=== PATIENT | male | born 1970 | race Caucasian/White ===

== ENCOUNTER 2018-07-02 17:08 | Observation (INO) | payer BC ==
[2018-07-02] MEDS ORDERED: KETOROLAC 30 MG/ML 1 ML VIAL IVP STA (18:03)
[2018-07-02] MEDS ORDERED: SODIUM CHLORIDE 0.9% 1,000 ML IV STA (18:03)
--- NOTE | 2018-07-02 18:08 | ED ---
General Adult HPI - General Chief complaint: Recheck/Abnormal Lab/Rx Stated complaint: Pain in buttocks Time Seen by Provider: 07/02/18 17:34 Source: patient, RN notes reviewed Mode of arrival: ambulatory Limitations: no limitations - History of Present Illness Initial comments: 47-year-old male presents to the emergency department for chief point of rectal pain 3 weeks. Patient states he was diagnosed with a fissure and started on a cream but states it is not helping. Patient describes the pain as a sharp pain that occurs intermittently throughout the day and last for 2-3 hours. He states the pain radiates to his pelvis. Patient denies significant pain with the bowel movement but states he does have some itching when having a bowel movement. He states sometimes he is worse after bowel movements but not consistently. He states nothing is alleviating the pain. He denies fevers or chills. He denies noting blood in the stool. He denies any abdominal pain. Patient has no other complaints at this time including shortness of breath, chest pain, abdominal pain, nausea or vomiting, headache, or visual changes. - Related Data Home Medications Medication Instructions Recorded Confirmed Atorvastatin [Lipitor] 10 mg PO DAILY 07/02/18 07/02/18 Ibuprofen [Motrin Ib] 400 mg PO Q6HR PRN 07/02/18 07/02/18 Multivitamins, Thera [Multivitamin 1 tab PO DAILY 07/02/18 07/02/18 (formulary)] [place]-3/Dha/Epa/Fish Oil [Fish Oil 1 cap PO DAILY 07/02/18 07/02/18 500 mg Softgel] Omeprazole 20 mg PO DAILY 07/02/18 07/02/18 Allergies Allergy/AdvReac Type Severity Reaction Status Date / Time No Known Allergies Allergy Verified 07/02/18 17:38 Review of Systems ROS Statement: Those systems with pertinent positive or pertinent negative responses have been documented in the HPI. ROS Other: All systems not noted in ROS Statement are negative. Past Medical History Past Medical History: GERD/Reflux, Hyperlipidemia Additional Past Medical History / Comment(s): fistula History of Any Multi-Drug Resistant Organisms: None Reported Past Surgical History: No Surgical Hx Reported Past Psychological History: No Psychological Hx Reported Smoking Status: Never smoker Past Alcohol Use History: Occasional Past Drug Use History: None Reported General Exam Limitations: no limitations General appearance: alert, in no apparent distress Head exam: Present: atraumatic, normocephalic, normal inspection Eye exam: Present: normal appearance, PERRL, EOMI. Absent: scleral icterus, conjunctival injection, periorbital swelling ENT exam: Present: normal exam, mucous membranes moist Neck exam: Present: normal inspection, full ROM. Absent: tenderness, meningismus, lymphadenopathy Respiratory exam: Present: normal lung sounds bilaterally. Absent: respiratory distress, wheezes, rales, rhonchi, stridor Cardiovascular Exam: Present: regular rate, normal rhythm, normal heart sounds. Absent: systolic murmur, diastolic murmur, rubs, gallop, clicks GI/Abdominal exam: Present: soft, normal bowel sounds. Absent: distended, tenderness, guarding, rebound, rigid Rectal exam: Present: normal rectal tone, tenderness (Significant tenderness noted on rectal exam). Absent: black stool, bloody stool, fecal impaction, hemorrhoids, mass, other (No fissure noted) Neurological exam: Present: alert, oriented X3, CN II-XII intact Psychiatric exam: Present: normal affect, normal mood Course Vital Signs 07/02/18 07/02/18 07/02/18 17:13 18:28 18:30 Temperature 97.3 F L Pulse Rate 58 L 43 L 48 L Respiratory 20 16 Rate Blood Pressure 134/84 124/80 O2 Sat by Pulse 99 98 99 Oximetry 07/02/18 19:00 Temperature Pulse Rate 47 L Respiratory 16 Rate Blood Pressure 124/83 O2 Sat by Pulse 97 Oximetry Medical Decision Making - Medical Decision Making 47-year-old male presents to the emergency department for a chief complaint of rectal pain 3 weeks. Patient was diagnosed with a fissure and started on cream but states it is not helping. He describes the pain as a sharp pain in the rectum that lasts for hours at a time and is intermittent throughout the day. He states it radiates into the pelvis. Patient denies significant pain when having a bowel movement. Admit sometimes it is worse after bowel movements but this is not consistent. He denies blood in the stool. He denies nausea or vomiting. CBC and CMP are unremarkable. Urine is negative. CT shows a small known hiatal hernia, otherwise negative scan. As patient's pain is significant at this time I do think he will benefit from seeing GI specialists in the hospital tomorrow. Patient agrees with this. He will be admitted and GI will be consulted. Patient's past medical history incorrectly states fistula, he states he was diagnosed with a fissure. - Lab Data Result diagrams: 07/02/18 18:36 07/02/18 18:36 Lab Results 07/02/18 07/02/18 07/02/18 Range/Units 18:36 18:36 19:40 WBC 6.1 (3.8-10.6) k/uL RBC 4.84 (4.30-5.90) m/uL Hgb 15.2 (13.0-17.5) gm/dL Hct 45.0 (39.0-53.0) % MCV 92.9 (80.0-100.0) fL MCH 31.4 (25.0-35.0) pg MCHC 33.8 (31.0-37.0) g/dL RDW 12.4 (11.5-15.5) % Plt Count 173 (150-450) k/uL Neutrophils % 55 % Lymphocytes % 30 % Monocytes % 7 % Eosinophils % 4 % Basophils % 1 % Neutrophils # 3.4 (1.3-7.7) k/uL Lymphocytes # 1.8 (1.0-4.8) k/uL Monocytes # 0.5 (0-1.0) k/uL Eosinophils # 0.2 (0-0.7) k/uL Basophils # 0.1 (0-0.2) k/uL Sodium 138 (137-145) mmol/L Potassium 4.2 (3.5-5.1) mmol/L Chloride 107 (98-107) mmol/L Carbon Dioxide 25 (22-30) mmol/L Anion Gap 6 mmol/L BUN 18 (9-20) mg/dL Creatinine 0.99 (0.66-1.25) mg/dL Est GFR (CKD-EPI)AfAm >90 (>60 ml/min/1.73 sqM) Est GFR (CKD-EPI)NonAf 89 (>60 ml/min/1.73 sqM) Glucose 85 (74-99) mg/dL Calcium 9.6 (8.4-10.2) mg/dL Total Bilirubin 0.5 (0.2-1.3) mg/dL AST 33 (17-59) U/L ALT 48 (21-72) U/L Alkaline Phosphatase 57 (38-126) U/L Total Protein 7.1 (6.3-8.2) g/dL Albumin 4.1 (3.5-5.0) g/dL Amylase 63 (30-110) U/L Lipase 71 (23-300) U/L Urine Color Yellow Urine Appearance Clear (Clear) Urine pH 6.0 (5.0-8.0) Urine Protein Negative (Negative) Urine Glucose (UA) Negative (Negative) Urine Ketones Negative (Negative) Urine Blood Negative (Negative) Urine Nitrite Negative (Negative) Urine Bilirubin Negative (Negative) Urine Urobilinogen <2.0 (<2.0) mg/dL Ur Leukocyte Esterase Negative (Negative) Disposition Clinical Impression: Rectal pain Disposition: ADMITTED IP TO THIS [facility] Condition: Good Referrals: None,Stated [Primary Care Provider] - 1-2 days Time of Disposition: 19:56
[2018-07-02 18:39] LABS: Basophils # (A) 0.1 k/uL (0-0.2); Basophils % (A) 1 %; Eosinophils # (A) 0.2 k/uL (0-0.7); Eosinophils % (A) 4 %; HGB 15.2 gm/dL (13.0-17.5); Lymphocytes # (A) 1.8 k/uL (1.0-4.8); Lymphocytes % (A) 30 %; MCH 31.4 pg (25.0-35.0); MCHC 33.8 g/dL (31.0-37.0); MCV 92.9 fL (80.0-100.0); Mean Platelet Volume 8.1; Monocytes # (A) 0.5 k/uL (0-1.0); Monocytes % (A) 7 %; Neutrophils # (A) 3.4 k/uL (1.3-7.7); Neutrophils % (A) 55 %; Platelet Count 173 k/uL (150-450); RBC 4.84 m/uL (4.30-5.90); RDW 12.4 % (11.5-15.5); WBC 6.1 k/uL (3.8-10.6)
[2018-07-02 18:58] LABS: ALT 48 U/L (21-72); AST 33 U/L (17-59); Albumin 4.1 g/dL (3.5-5.0); Alkaline Phosphatase 57 U/L (38-126); Amylase 63 U/L (30-110); Anion Gap 6 mmol/L; Blood Urea Nitrogen 18 mg/dL (9-20); Calcium 9.6 mg/dL (8.4-10.2); Carbon Dioxide 25 mmol/L (22-30); Chloride 107 mmol/L (98-107); Glucose 85 mg/dL (74-99); Lipase 71 U/L (23-300); Potassium 4.2 mmol/L (3.5-5.1); Sodium 138 mmol/L (137-145); Total Bilirubin 0.5 mg/dL (0.2-1.3); Total Protein 7.1 g/dL (6.3-8.2)
--- NOTE | 2018-07-02 19:05 | CT ---
EXAMINATION TYPE: CT abdomen pelvis w con DATE OF EXAM: 07/02/2018 COMPARISON: None HISTORY: Rectal pain. CT DLP: 943.1 mGycm Automated exposure control for dose reduction was used. TECHNIQUE: Helical acquisition of images was performed from the lung bases through the pelvis. CONTRAST: Performed without Oral Contrast and with IV Contrast, patient injected with 100ml mL of Isovue 300. FINDINGS: Multiple axial sections were obtained from the diaphragm to the floor the pelvis with intravenous con trast. There is subsegmental atelectasis at the lung bases. There are small hiatal hernia. Heart size is nor mal. There is no pericardial effusion. There is no pleural effusion. Liver shows no focal defect. Gallbladder appears normal. Spleen and pancreas appear normal. There is no adrenal mass. Kidneys show satisfactory contrast opacification. There is no hydronephrosi s. There is no retroperitoneal adenopathy. Bladder distends smoothly. There is no free fluid in the p elaine. There is no inguinal hernia. Ureters are not dilated. There is no mesenteric edema or adenopathy. Appendix is not seen. There is no sign of appendicitis. There is no evidence of a pelvic mass. Prostate measures 4.4 cm. There is no evidence of a rectal mas s. Lumbar spine is intact. I see no bony destructive process. Bony pelvis is intact. IMPRESSION: SMALL HIATAL HERNIA. NEGATIVE CT SCAN OF THE ABDOMEN AND PELVIS. I DO NOT SEE A CAUSE FOR RECTAL PAIN .
[2018-07-02 19:47] LABS: Appearance,Urine Clear (Clear); Bilirubin,Urine Negative (Negative); Blood,Urine Negative (Negative); Color,Urine Yellow; Glucose,Urine (UA) Negative (Negative); Ketones,Urine Negative (Negative); Leukocyte Esterase,Urine Negative (Negative); Nitrite,Urine Negative (Negative); Protein,Urine Negative (Negative); Urobilinogen,Urine <2.0 mg/dL (<2.0)
[2018-07-02 19:57] LABS: Specific Gravity,Urine >1.050 (1.001-1.035)
[2018-07-02] MEDS ORDERED: NALOXONE 0.4 MG/ML 1 ML VIAL IV PRN (19:57)
[2018-07-02] MEDS ORDERED: KETOROLAC 30 MG/ML 1 ML VIAL IVP PRN (19:57)
[2018-07-02] MEDS: SODIUM CHLORIDE 0.9% 1,000 ML IV SCH (20:40)
[2018-07-03] MEDS: SODIUM CHLORIDE 0.9% 1,000 ML IV SCH ×2 (06:25→14:55)
[2018-07-03] MEDS ORDERED: LORazepam 2 MG/ML INJ IV PRN ×3 (09:54)
[2018-07-03] MEDS ORDERED: THIAMINE 100 MG/ML 2 ML VIAL IM STA (09:54)
[2018-07-03 09:58] LABS: Glucose,Whole Blood 86 mg/dL (75-99)
--- NOTE | 2018-07-03 10:36 | P.CONS ---
History of Present Illness - Reason for Consult Consult date: 07/03/18 rectal pain Requesting physician: Kev Solomon - Chief Complaint rectal pain - History of Present Illness 47-year-old gentleman with a past medical history of GERD admitted with three- week history of rectal pain without fever chills weight loss, hematemesis, hematochezia, melena, or abdominal pain. Patient was evaluated by a GI specialist [facility] in [facility] 3 weeks ago and was told he had a rectal fissure. He was prescribed suppositories which she did not take secondary to increased pain. History of colonoscopy EGD about 3 years ago performed through [facility] to his memory unremarkable with the exception of a few polyps removed. Drinks beer 3-4 days a week for several years No personal or familial history of colorectal cancers. CT abdomen reported small hiatal hernia otherwise negative. No cause for rectal pain. White count 6.1. Hemoglobin 15.2. BUN 18. Creatinine 0.9. No history of rectal pain. No trauma to rectal region. Denies rectal foreign body. Review of Systems Constitutional: Denies fever, chills, sweats, weight gain, or loss. HEENT: Negative for migraines, blurred vision or loss, earaches, drainage, tinnitus, oral mucosal lesions, dysphagia, or odynophagia. Cardiac: Negative for chest pain, arrhythmias, or palpitation. Respiratory: Negative for shortness of breath, hemoptysis, cough, or sputum production. Gastrointestinal: See HPI for pertinent findings. Genitourinary: Negative for hematuria, urgency, frequency, polyuria, dysuria, or penile discharge. Musculoskeletal: Negative for muscle aches, swelling, arthritis, and arthralgias. Neurologic: Negative for stroke or TIA. Endocrine: Negative for thyroid problems. Skin: Negative for rash or itching. Psychiatric: Negative history for depression and anxiety Past Medical History Past Medical History: GERD/Reflux, Hyperlipidemia Additional Past Medical History / Comment(s): fistula History of Any Multi-Drug Resistant Organisms: None Reported Past Surgical History: No Surgical Hx Reported Past Anesthesia/Blood Transfusion Reactions: No Reported Reaction Past Psychological History: No Psychological Hx Reported Smoking Status: Never smoker Past Alcohol Use History: Occasional Past Drug Use History: None Reported - Past Family History Mother History Unknown: Yes Medications and Allergies Home Medications Medication Instructions Recorded Confirmed Type Atorvastatin [Lipitor] 10 mg PO DAILY 07/02/18 07/02/18 History Ibuprofen [Motrin Ib] 400 mg PO Q6HR PRN 07/02/18 07/02/18 History Multivitamins, Thera [Multivitamin 1 tab PO DAILY 07/02/18 07/02/18 History (formulary)] [place]-3/Dha/Epa/Fish Oil [Fish Oil 1 cap PO DAILY 07/02/18 07/02/18 History 500 mg Softgel] Omeprazole 20 mg PO DAILY 07/02/18 07/02/18 History Allergies Allergy/AdvReac Type Severity Reaction Status Date / Time No Known Allergies Allergy Verified 07/02/18 17:38 Physical Exam Vitals: Vital Signs Temp Pulse Pulse Resp BP BP Pulse Ox 07/03/18 07:00 98.0 F 63 16 127/75 95 07/02/18 22:00 18 07/02/18 21:30 97.6 F 62 18 142/82 96 07/02/18 20:42 63 20 128/91 97 07/02/18 20:00 61 20 100/45 99 07/02/18 19:00 47 L 16 124/83 97 07/02/18 18:30 48 L 16 124/80 99 07/02/18 18:28 43 L 98 07/02/18 17:13 97.3 F L 58 L 20 134/84 99 Intake and Output 07/02/18 07/03/18 07/03/18 22:59 06:59 14:59 Intake Total 200 0 Balance 200 0 Intake: Oral 200 0 Other: # Voids 0 Weight 88.224 kg General appearance: The patient is alert, oriented, diaphoretic. HET: Head is normocephalic and atraumatic. Pupils are equal and reactive. Oropharynx is clear without lesions. Neck: Supple without lymphadenopathy. Trachea midline. Heart: S1 S2. Regular rate and rhythm. Lungs: No crackles or wheezes are heard. Abdomen: Soft, nontender, nondistended with bowel sounds. No peritoneal signs. No palpable organomegaly or masses. Extremities: Normal skin color and turgor. No cyanosis, rash, ulceration, clubbing, or edema. Radial and pedal pulses are 2/4 bilaterally. Neurological: No focal deficits. Strength and sensation are grossly intact. Results CBC & Chem 7: 07/02/18 18:36 07/02/18 18:36 Labs: Abnormal Lab Results - Last 24 Hours (Table) 07/02/18 Range/Units 19:40 Ur Specific [place] >1.050 H (1.001-1.035) CT scan - abdomen: report reviewed (Dr. Chaudhary) Assessment and Plan (1) Rectal pain Narrative/Plan: 47-year-old gentleman admitted with a 3 week history of rectal pain without bleeding weight loss or abdominal pain. Recent outpatient evaluation 3 weeks ago told anal fissure, rectal suppositories advised but not taken secondary to increased pain. CT imaging could not identify cause of rectal pain. Current Visit: Yes Status: Acute Code(s): K62.89 - OTHER SPECIFIED DISEASES OF ANUS AND RECTUM SNOMED Code(s): 32977575 (2) ETOH abuse Narrative/Plan: Possible withdrawl drinks 3-4 beers daily 3-4 days week presently with diaphoresis. Current Visit: Yes Status: Acute Code(s): F10.10 - ALCOHOL ABUSE, UNCOMPLICATED SNOMED Code(s): 45055126 Plan: 1. Clear liquids. CIWA. Patient is diaphoretic this morning possible early EtOH withdrawal we'll hold off on colonoscopy for now but is recommended for evaluation of rectal pain. We'll continue to follow closely with you. The budder has discussed the risks, benefits and alternative therapies for the above-mentioned procedure and for both sedation/analgesia as well as necessary blood product administration, if indicated, as they pertain to this patient. The patient has indicated understanding and acceptance of the risks and procedures discussed. Thank you for this kind referral and the opportunity to participate in the care of your patient. This consultation was discussed with Dr. Chaudhary. The impression and plan of care have been directed as dictated.
[2018-07-03] MEDS ORDERED: BISACODYL 5 MG TABLET.DR PO ONE (12:00)
[2018-07-03 12:30] LABS: Basophils # (A) 0.1 k/uL (0-0.2); Basophils % (A) 1 %; Eosinophils # (A) 0.3 k/uL (0-0.7); Eosinophils % (A) 4 %; HCT 44.1 % (39.0-53.0); HGB 14.5 gm/dL (13.0-17.5); Lymphocytes # (A) 1.8 k/uL (1.0-4.8); Lymphocytes % (A) 31 %; MCH 30.5 pg (25.0-35.0); MCV 92.3 fL (80.0-100.0); Mean Platelet Volume 7.7; Monocytes # (A) 0.4 k/uL (0-1.0); Monocytes % (A) 7 %; Neutrophils # (A) 3.2 k/uL (1.3-7.7); Neutrophils % (A) 55 %; Platelet Count 173 k/uL (150-450); RBC 4.77 m/uL (4.30-5.90); RDW 12.3 % (11.5-15.5); WBC 5.9 k/uL (3.8-10.6)
[2018-07-03 12:47] LABS: Anion Gap 5 mmol/L; Blood Urea Nitrogen 12 mg/dL (9-20); Calcium 9.1 mg/dL (8.4-10.2); Carbon Dioxide 25 mmol/L (22-30); Chloride 111 mmol/L (98-107); Glucose 90 mg/dL (74-99); Potassium 4.2 mmol/L (3.5-5.1); Sodium 141 mmol/L (137-145)
[2018-07-03] MEDS: PANTOPRAZOLE 40 MG TABLET PO SCH (14:54)
[2018-07-03] MEDS ORDERED: PEG 3350-NA SULF,BICARB,CL/KCL 4,000 ML BOTTLE PO ONE ×2 (15:00→18:24)
--- NOTE | 2018-07-03 15:04 | P.HPIM ---
History of Present Illness 47-year-old gentleman with a past medical history of GERD admitted with three- week history of rectal pain without fever chills weight loss, hematemesis, hematochezia, melena, or abdominal pain. Patient was evaluated by a GI specialist [facility] in [facility] 3 weeks ago and was told he had a rectal fissure. He was prescribed suppositories which she did not take secondary to increased pain. History of colonoscopy EGD about 3 years ago performed through [facility] to his memory unremarkable with the exception of a few polyps removed. Rectal exam in ER did not show any voids Drinks beer 3-4 days a week for several years he drinks about 2-6 beers a day 3- 4 times a week Review of Systems REVIEW OF SYSTEMS: CONSTITUTIONAL: No fever, no malaise, no fatigue. HEENT: No recent visual problems or hearing problems. Denied any sore throat. CARDIOVASCULAR: No chest pain, orthopnea, PND, no palpitations, no syncope. PULMONARY: No shortness of breath, no cough, no hemoptysis. GASTROINTESTINAL: No diarrhea, no nausea, no vomiting, no abdominal pain. Normoactive bowel sounds. NEUROLOGICAL: No headaches, no weakness, no numbness. HEMATOLOGICAL: Denies any bleeding or petechiae. GENITOURINARY: Denies any burning micturition, frequency, or urgency. MUSCULOSKELETAL/RHEUMATOLOGICAL: Denies any joint pain, swelling, or any muscle pain. ENDOCRINE: Denies any polyuria or polydipsia. The rest of the 14-point review of systems is negative. Past Medical History Past Medical History: GERD/Reflux, Hyperlipidemia Additional Past Medical History / Comment(s): fistula History of Any Multi-Drug Resistant Organisms: None Reported Past Surgical History: No Surgical Hx Reported Past Anesthesia/Blood Transfusion Reactions: No Reported Reaction Past Psychological History: No Psychological Hx Reported Smoking Status: Never smoker Past Alcohol Use History: Occasional Past Drug Use History: None Reported - Past Family History Mother History Unknown: Yes Medications and Allergies Home Medications Medication Instructions Recorded Confirmed Type Atorvastatin [Lipitor] 10 mg PO DAILY 07/02/18 07/02/18 History Ibuprofen [Motrin Ib] 400 mg PO Q6HR PRN 07/02/18 07/02/18 History Multivitamins, Thera [Multivitamin 1 tab PO DAILY 07/02/18 07/02/18 History (formulary)] [place]-3/Dha/Epa/Fish Oil [Fish Oil 1 cap PO DAILY 07/02/18 07/02/18 History 500 mg Softgel] Omeprazole 20 mg PO DAILY 07/02/18 07/02/18 History Allergies Allergy/AdvReac Type Severity Reaction Status Date / Time No Known Allergies Allergy Verified 07/02/18 17:38 Physical Exam Vitals: Vital Signs Temp Pulse Pulse Resp BP BP Pulse Ox 07/03/18 07:00 98.0 F 63 16 127/75 95 07/02/18 22:00 18 07/02/18 21:30 97.6 F 62 18 142/82 96 07/02/18 20:42 63 20 128/91 97 07/02/18 20:00 61 20 100/45 99 07/02/18 19:00 47 L 16 124/83 97 07/02/18 18:30 48 L 16 124/80 99 07/02/18 18:28 43 L 98 07/02/18 17:13 97.3 F L 58 L 20 134/84 99 Intake and Output 07/03/18 07/03/18 07/03/18 06:59 14:59 22:59 Intake Total 0 Balance 0 Intake: Oral 0 PHYSICAL EXAMINATION: GENERAL: The patient is alert and oriented x3, not in any acute distress. Well developed, well nourished. HEENT: Pupils are round and equally reacting to light. EOMI. No scleral icterus. No conjunctival pallor. Normocephalic, atraumatic. No pharyngeal erythema. No thyromegaly. CARDIOVASCULAR: S1 and S2 present. No murmurs, rubs, or gallops. PULMONARY: Chest is clear to auscultation, no wheezing or crackles. ABDOMEN: Soft, nontender, nondistended, normoactive bowel sounds. No palpable organomegaly. MUSCULOSKELETAL: No joint swelling or deformity. EXTREMITIES: No cyanosis, clubbing, or pedal edema. NEUROLOGICAL: Gross neurological examination did not reveal any focal deficits. SKIN: No rashes. Results CBC & Chem 7: 07/03/18 12:18 07/03/18 12:18 Labs: Abnormal Lab Results - Last 24 Hours (Table) 07/02/18 07/03/18 Range/Units 19:40 12:18 Chloride 111 H (98-107) mmol/L Ur Specific [place] >1.050 H (1.001-1.035) Thrombosis Risk Factor Assmnt - Choose All That Apply Any of the Below Risk Factors Present?: Yes Each Factor Represents 1 point: Age 41-60 years, Obesity (BMI >25) Other congenital or acquired thrombophilia - If yes, enter type in comment: No Thrombosis Risk Factor Assessment Total Risk Factor Score: 2 Thrombosis Risk Factor Assessment Level: Low Risk Assessment and Plan Plan: -Rectal pain: Anal fissures is in differential patient will undergo colonoscopy tomorrow -Gastroesophageal reflux disease patient will be resumed on Prevacid -Hyperlipidemia -Alcohol abuse: Counseling was provided I do not believe patient has all call withdraws at this time and I do not expect him to have alcohol withdrawals either
[2018-07-03] MEDS: THIAMINE 100 MG TAB PO SCH (16:17)
[2018-07-03] MEDS: MORPHINE SULFATE 4 MG/ML SYRINGE IV PRN (21:36)
[2018-07-04] MEDS: MORPHINE SULFATE 4 MG/ML SYRINGE IV PRN ×3 (01:23→12:18)
[2018-07-04] MEDS: SODIUM CHLORIDE 0.9% 1,000 ML IV SCH ×2 (03:34→12:23)
[2018-07-04 06:27] VITALS: BP 154/81; PULSE 67; RESP 18; TEMP 98
[2018-07-04] MEDS: PANTOPRAZOLE 40 MG TABLET PO SCH (07:35)
[2018-07-04] MEDS ORDERED: PROPOFOL 10 MG/ML 20 ML VIAL IV ONE (08:27)
[2018-07-04] MEDS ORDERED: IV FLUID CONTINUATION 250 ML IV ONE (08:28)
[2018-07-04] MEDS ORDERED: LACTATED RINGERS 1,000 ML IV ONE (08:42)
--- NOTE | 2018-07-04 08:44 | P.PCN ---
Date of Procedure: 07/04/18 Procedure(s) Performed: BRIEF HISTORY: Patient is a 47-year-old pleasant, white male, admitted to the hospital with severe rectal pain for the last 3 weeks' duration. He was treated with topical steroids as well as nitroglycerin cream for anal fissure with no help. Because of the ongoing persistent symptoms he scheduled for colonoscopy to evaluate further. PROCEDURE PERFORMED: Colonoscopy. PREOPERATIVE DIAGNOSIS: Severe rectal pain of 3 weeks' duration. IV sedation per Anesthesia. PROCEDURE: After informed consent was obtained, the patient, was brought into the endoscopy unit. IV sedation was administered by Anesthesia under continuous monitoring. Digital rectal examination was normal. Perianal area appeared normal. Digital rectal examination did not reveal any anal fissure. However there was some spasm of the sphincter noted. Initially the Olympus CF-160 flexible video colonoscope was then inserted in the rectum, gradually advanced into the cecum without any difficulty. Careful examination was performed as the scope was gradually being withdrawn. Ileocecal valve and the appendiceal orifice were visualized and appeared normal. Prep was excellent. Mucosa of the cecum, ascending colon, transverse colon, descending colon, sigmoid colon, and rectum appeared normal. Retroflexion was performed in the rectum and small internal hemorrhoids were seen. The patient tolerated the procedure well. IMPRESSION: Normal perianal area Small internal hemorrhoids Scattered sigmoid diverticulosis No evidence of external hemorrhoids, anal fissure or other perianal pathology RECOMMENDATIONS: Findings of this examination were discussed with the patient. Will give him a trial of topical steroid suppository and advised to be a high- fiber diet and take fiber supplements on a regular basis, avoid straining and constipation.
[2018-07-04] MEDS ORDERED: HYDROCORTISONE SUPPOSITORY 25 MG SUPP RECTAL STA (08:47)
[2018-07-04] MEDS: THIAMINE 100 MG TAB PO SCH (12:18)
--- NOTE | 2018-07-04 14:26 | P.DS ---
Providers Date of admission: 07/02/18 19:57 Expected date of discharge: 07/04/18 Attending physician: Kev Solomon Consults: 07/02/18 19:57 Consult Physician Stat Consulting Provider: Ludy Chaudhary Consult Reason/Comments: rectal pain x 3 weeks Do you want consulting provider notified?: Yes Primary care physician: Stated None Hospital Course: Final Diagnoses: -Rectal pain: Status post colonoscopy reporting small internal hemorrhoids, scattered sigmoid diverticulosis -Gastroesophageal reflux disease -Hyperlipidemia -Alcohol abuse counseled Hospital course: This is a 47-year-old gentleman with a past medical history of GERD admitted with three-week history of rectal pain without fever chills weight loss, hematemesis, hematochezia, melena, or abdominal pain. Patient was evaluated by a GI specialist [facility] in [facility] 3 weeks ago and was told he had a rectal fissure. He was prescribed suppositories which she did not take secondary to increased pain. History of colonoscopy EGD about 3 years ago performed through [facility] to his memory unremarkable with the exception of a few polyps removed. Rectal exam in ER did not show any voids Drinks beer 3-4 days a week for several years he drinks about 2-6 beers a day 3- 4 times a week Evaluated by GI, underwent colonoscopy reporting small internal hemorrhoids, scattered sigmoid diverticulosis. High fiber diet, Anusol HC suppositories recommended. Cleared by GI for discharge. Patient is being discharged home in a stable condition with guarded prognosis. EXAMINATION: GENERAL: alert and oriented x3, not in any acute distress. CARDIOVASCULAR: S1 and S2 present. No murmurs, rubs, or gallops. PULMONARY: Chest is clear to auscultation, no wheezing or crackles. ABDOMEN: Soft, nontender, nondistended, normoactive bowel sounds. NEUROLOGICAL: Gross neurological examination did not reveal any focal deficits. The impression and plan of care has been dictated as directed. : I performed a history and examination of this patient, discussed the same with the dictator. I agree with the dictator's note ,documented as a scribe. Any additional findings or plans will be noted. Time taken: 35 minutes Patient Condition at Discharge: Stable Plan - Discharge Summary New Discharge Prescriptions: New Hydrocortisone Suppository [Anusol-Hc] 25 mg RECTAL BID #28 supp Continue Multivitamins, Thera [Multivitamin (formulary)] 1 tab PO DAILY Atorvastatin [Lipitor] 10 mg PO DAILY Omeprazole 20 mg PO DAILY [place]-3/Dha/Epa/Fish Oil [Fish Oil 500 mg Softgel] 1 cap PO DAILY Ibuprofen [Motrin Ib] 400 mg PO Q6HR PRN PRN Reason: Pain Discharge Medication List Atorvastatin [Lipitor] 10 mg PO DAILY 07/02/18 [History] Ibuprofen [Motrin Ib] 400 mg PO Q6HR PRN 07/02/18 [History] Multivitamins, Thera [Multivitamin (formulary)] 1 tab PO DAILY 07/02/18 [History ] [place]-3/Dha/Epa/Fish Oil [Fish Oil 500 mg Softgel] 1 cap PO DAILY 07/02/18 [ History] Omeprazole 20 mg PO DAILY 07/02/18 [History] Hydrocortisone Suppository [Anusol-Hc] 25 mg RECTAL BID #28 supp 07/04/18 [Rx] Follow up Appointment(s)/Referral(s): Ludy Chaudhary MD [STAFF PHYSICIAN] - 1 Week Berenice Black MD [REFERRING] - 3 Days Patient Instructions/Handouts: Diverticulosis (DC) Activity/Diet/Wound Care/Special Instructions: Diet high fiber
== END 2018-07-04 14:48 | disposition home or self-care (01) ==
LOC: EC 17:08 → 4MS4W 19:57
PROVIDERS: ADMIT Internal Medicine; ATTEND Internal Medicine
DX: K64.8 Other hemorrhoids (principal); K44.9 Diaphragmatic hernia without obstruction or gangrene; E78.5 Hyperlipidemia, unspecified; Z71.41 Alcohol abuse counseling and surveillance of alcoholic; F10.10 Alcohol abuse, uncomplicated; K21.9 Gastro-esophageal reflux disease without esophagitis; K57.30 Diverticulosis of large intestine without perforation or abscess without bleeding; Z79.899 Other long term (current) drug therapy
CPT/HCPCS: 96376; 96361 ×3; 96372; 96375; 96374; 99285; 36415; 80053; 80048; 82150; 83690; 85025 ×2; 81003; 74177; 45378; G0378 ×3; J2270 ×2; J3411; J1885; J2704; Q9967

== ENCOUNTER 2020-01-02 20:30 | Observation (INO) | payer BC, OTHER ==
[2020-01-02] MEDS ORDERED: MORPHINE SULFATE 4 MG/ML SYRINGE IVP STA (21:04)
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
[2020-01-02 21:49] LABS: Basophils # (A) 0.1 k/uL (0-0.2); Basophils % (A) 1 %; Eosinophils # (A) 0.2 k/uL (0-0.7); Eosinophils % (A) 3 %; HCT 44.1 % (39.0-53.0); HGB 14.5 gm/dL (13.0-17.5); Lymphocytes # (A) 1.9 k/uL (1.0-4.8); Lymphocytes % (A) 21 %; MCH 30.3 pg (25.0-35.0); MCHC 32.7 g/dL (31.0-37.0); MCV 92.7 fL (80.0-100.0); Monocytes # (A) 0.6 k/uL (0-1.0); Monocytes % (A) 7 %; Neutrophils # (A) 6.1 k/uL (1.3-7.7); Neutrophils % (A) 67 %; Platelet Count 193 k/uL (150-450); RBC 4.76 m/uL (4.30-5.90); RDW 12.3 % (11.5-15.5); WBC 9.1 k/uL (3.8-10.6)
[2020-01-02 21:57] LABS: INR 0.9 (<1.2); Prothrombin Time 9.7 sec (9.0-12.0)
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
[2020-01-02 21:58] LABS: ALT 40 U/L (4-49); AST 42 U/L (17-59); African American GFR (CKD) >90 (>60 ml/min/1.73 sqM); Albumin 4.1 g/dL (3.5-5.0); Alkaline Phosphatase 75 U/L (38-126); Anion Gap 8 mmol/L; Blood Urea Nitrogen 14 mg/dL (9-20); Carbon Dioxide 25 mmol/L (22-30); Chloride 105 mmol/L (98-107); Glucose 108 mg/dL (74-99); Non-African American GFR(CKD) >90 (>60 ml/min/1.73 sqM); Potassium 4.1 mmol/L (3.5-5.1); Sodium 138 mmol/L (137-145); Total Bilirubin 0.3 mg/dL (0.2-1.3); Total Protein 6.7 g/dL (6.3-8.2)
[2020-01-02] MEDS ORDERED: NALOXONE 0.4 MG/ML 1 ML VIAL IV PRN (23:05)
[2020-01-02] MEDS ORDERED: HYDROmorphone 0.5 MG/0.5 ML SYRINGE IVP PRN (23:05)
[2020-01-02] MEDS ORDERED: ACETAMINOPHEN TAB 325 MG TAB PO PRN (23:05)
[2020-01-02] MEDS ORDERED: LORazepam 2 MG/ML INJ IV PRN (23:05)
[2020-01-02] MEDS ORDERED: Acetaminophen-Codeine 300-30mg TAB PO PRN (23:05)
[2020-01-02] MEDS ORDERED: ALPRAZolam 0.25 MG TAB PO PRN (23:05)
[2020-01-02] MEDS ORDERED: HYDROmorphone 1 MG/ML 1 ML SYRINGE IVP PRN (23:05)
[2020-01-02] MEDS ORDERED: ONDANSETRON 4 MG/2 ML VIAL IVP PRN (23:05)
[2020-01-02 23:14] LABS: Amylase 71 U/L (30-110)
[2020-01-02] MEDS ORDERED: SODIUM CHLORIDE 0.9% 1,000 ML IV SCH (23:15)
[2020-01-02 23:40] LABS: Appearance,Urine Clear (Clear); Bilirubin,Urine Negative (Negative); Blood,Urine Negative (Negative); Color,Urine Yellow; Glucose,Urine (UA) Negative (Negative); Ketones,Urine Negative (Negative); Leukocyte Esterase,Urine Negative (Negative); Nitrite,Urine Negative (Negative); Protein,Urine Negative (Negative); Urobilinogen,Urine <2.0 mg/dL (<2.0)
[2020-01-03 00:01] LABS: Specific Gravity,Urine >1.050 (1.001-1.035)
[2020-01-03] MEDS: MORPHINE SULFATE 4 MG/ML SYRINGE IV PRN ×2 (00:29→06:59)
[2020-01-03 07:22] LABS: Prothrombin Time 10.2 sec (9.0-12.0)
[2020-01-03 07:26] LABS: ALT 34 U/L (4-49); AST 42 U/L (17-59); African American GFR (CKD) >90 (>60 ml/min/1.73 sqM); Albumin 3.8 g/dL (3.5-5.0); Alkaline Phosphatase 62 U/L (38-126); Amylase 48 U/L (30-110); Anion Gap 5 mmol/L; Blood Urea Nitrogen 12 mg/dL (9-20); Calcium 8.7 mg/dL (8.4-10.2); Carbon Dioxide 23 mmol/L (22-30); Chloride 109 mmol/L (98-107); Glucose 85 mg/dL (74-99); Non-African American GFR(CKD) >90 (>60 ml/min/1.73 sqM); Potassium 4.5 mmol/L (3.5-5.1); Sodium 137 mmol/L (137-145); Total Bilirubin 0.5 mg/dL (0.2-1.3); Total Protein 6.5 g/dL (6.3-8.2)
[2020-01-03 07:41] LABS: Basophils # (A) 0.1 k/uL (0-0.2); Basophils % (A) 1 %; Eosinophils # (A) 0.2 k/uL (0-0.7); Eosinophils % (A) 4 %; HGB 14.8 gm/dL (13.0-17.5); Lymphocytes # (A) 1.6 k/uL (1.0-4.8); Lymphocytes % (A) 26 %; MCH 32.7 pg (25.0-35.0); MCHC 34.4 g/dL (31.0-37.0); Mean Platelet Volume 8.9; Monocytes # (A) 0.5 k/uL (0-1.0); Monocytes % (A) 8 %; Neutrophils # (A) 3.7 k/uL (1.3-7.7); Neutrophils % (A) 58 %; Platelet Count 176 k/uL (150-450); RBC 4.53 m/uL (4.30-5.90); RDW 12.4 % (11.5-15.5); WBC 6.3 k/uL (3.8-10.6)
[2020-01-03 10:25] VITALS: BP 135/69; PULSE 53; RESP 16; TEMP 97.6
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
--- NOTE | 2020-01-03 10:27 | P.DS ---
Providers Date of admission: 01/02/20 23:13 Attending physician: Jasper English Primary care physician: Berenice Black - Discharge Diagnosis(es) (1) Rib contusion Please refer to H&P. Patient will be discharged today with suspected left rib injury. Current Visit: Yes Status: Acute Patient Condition at Discharge: Good Plan - Discharge Summary New Discharge Prescriptions: No Action Multivitamins, Thera [Multivitamin (formulary)] 1 tab PO DAILY Atorvastatin [Lipitor] 10 mg PO DAILY Omeprazole 20 mg PO DAILY [place]-3/Dha/Epa/Fish Oil [Fish Oil 500 mg Softgel] 1 cap PO DAILY Ibuprofen [Motrin Ib] 400 mg PO Q6HR PRN PRN Reason: Pain Hydrocortisone Suppository [Anusol-Hc] 25 mg RECTAL BID #28 supp Discharge Medication List Atorvastatin [Lipitor] 10 mg PO DAILY 07/02/18 [History] Ibuprofen [Motrin Ib] 400 mg PO Q6HR PRN 07/02/18 [History] Multivitamins, Thera [Multivitamin (formulary)] 1 tab PO DAILY 07/02/18 [History] [place]-3/Dha/Epa/Fish Oil [Fish Oil 500 mg Softgel] 1 cap PO DAILY 07/02/18 [History] Omeprazole 20 mg PO DAILY 07/02/18 [History] Hydrocortisone Suppository [Anusol-Hc] 25 mg RECTAL BID #28 supp 07/04/18 [Rx] Follow up Appointment(s)/Referral(s): None,Stated [REFERRING] - 1-2 days Activity/Diet/Wound Care/Special Instructions: Patient will admitted
== END 2020-01-03 13:05 | disposition home or self-care (01) ==
LOC: EC 20:30 → 1SOBS 23:13
PROVIDERS: ADMIT Surgery; ATTEND Surgery
DX: S20.219A Contusion of unspecified front wall of thorax, initial encounter (principal); W01.0XXA Fall on same level from slipping, tripping and stumbling without subsequent striking against object, initial encounter; K21.9 Gastro-esophageal reflux disease without esophagitis; E78.5 Hyperlipidemia, unspecified; Z79.891 Long term (current) use of opiate analgesic; Z79.899 Other long term (current) drug therapy
CPT/HCPCS: 96376; 96374; 99285; 36415; 86900; 86901; 80053 ×2; 82150 ×2; 83690 ×2; 85025 ×2; 85610 ×2; 85730; 86850; 81003; 71260; 74177; G0378 ×2; U0003; J2270 ×2; Q9967